=== PATIENT | female | born 1960 | race Caucasian/White ===

== ENCOUNTER 2016-10-09 16:38 | Observation (INO) | payer OTHER ==
[2016-10-09] MEDS ORDERED: ASPIRIN 81 MG CHEW PO STA (17:07)
[2016-10-09] MEDS ORDERED: NITROGLYCERIN OINT 1 INCH/GM PACKET TOPICAL STA (17:07)
--- NOTE | 2016-10-09 17:10 | ED ---
General Adult HPI - General Chief complaint: Chest Pain Stated complaint: Chest Tightness Time Seen by Provider: 10/09/16 16:47 Source: patient, RN notes reviewed Mode of arrival: ambulatory Limitations: no limitations - History of Present Illness Initial comments: Patient is a pleasant 56-year-old female presenting to the emergency department complaining of chest discomfort. Onset was around 1:00. Discomfort was severe for about an hour. Discomfort is mild at this time. Discomfort was shooting however now feels more like tightness. Discomfort is near the left breast. No associated dyspnea or nausea. Patient does feel lightheaded. No history of similar symptoms previously. - Related Data Home Medications Medication Instructions Recorded Confirmed Levothyroxine Sodium [Synthroid] 100 mcg PO DAILY 10/09/16 10/09/16 diphenhydrAMINE HCL [Benadryl] 37.5 mg PO HS PRN 10/09/16 10/09/16 Allergies Allergy/AdvReac Type Severity Reaction Status Date / Time Sulfa (Sulfonamide Allergy Itching Verified 10/09/16 17:13 Antibiotics) Review of Systems ROS Statement: Those systems with pertinent positive or pertinent negative responses have been documented in the HPI. ROS Other: All systems not noted in ROS Statement are negative. Constitutional: Denies: fever Eyes: Denies: eye pain ENT: Denies: ear pain Respiratory: Denies: cough, dyspnea Cardiovascular: Reports: chest pain Endocrine: Denies: fatigue Gastrointestinal: Denies: abdominal pain Genitourinary: Denies: dysuria Musculoskeletal: Denies: back pain Skin: Denies: rash Neurological: Denies: weakness Past Medical History Past Medical History: Thyroid Disorder History of Any Multi-Drug Resistant Organisms: None Reported Past Surgical History: No Surgical Hx Reported Past Psychological History: No Psychological Hx Reported Smoking Status: Never smoker Past Alcohol Use History: Rare Past Drug Use History: None Reported General Exam Limitations: no limitations General appearance: alert, in no apparent distress Head exam: Present: atraumatic Eye exam: Present: normal appearance, PERRL ENT exam: Present: normal oropharynx Neck exam: Present: normal inspection Respiratory exam: Present: normal lung sounds bilaterally. Absent: chest wall tenderness Cardiovascular Exam: Present: regular rate, normal rhythm Expanded Peripheral pulses: 2+: Radial (R), Radial (L), Dorsalis Pedis (R), Dorsalis Pedis (L) GI/Abdominal exam: Present: soft. Absent: tenderness Extremities exam: Present: normal inspection. Absent: pedal edema, calf tenderness Neurological exam: Present: alert Psychiatric exam: Present: normal affect, normal mood Skin exam: Absent: rash Course Vital Signs 10/09/16 10/09/16 10/09/16 16:42 19:57 20:05 Temperature 97.9 F Pulse Rate 54 L 55 L 56 L Respiratory 20 16 20 Rate Blood Pressure 155/74 124/61 O2 Sat by Pulse 100 99 98 Oximetry EKG Findings - EKG Comments: EKG Findings:: No sinus rhythm at 66. Normal intervals. Normal axis. Normal QRS. Normal ST-T. Medical Decision Making - Medical Decision Making Patient reexamined and resting comfortably in bed without complaint. Case discussed in detail with Dr. Broderick, who will admit for Dr. Faria. Patient updated. Admission orders written. Cardiac consult placed. IV heparin started. - Lab Data Result diagrams: 10/09/16 17:35 10/09/16 17:35 Lab Results 10/09/16 10/09/16 10/09/16 Range/Units 17:35 17:35 17:35 WBC 5.2 (3.8-10.6) k/uL RBC 4.65 (3.80-5.40) m/uL Hgb 13.5 (11.4-16.0) gm/dL Hct 40.8 (34.0-46.0) % MCV 87.7 (80.0-100.0) fL MCH 29.0 (25.0-35.0) pg MCHC 33.0 (31.0-37.0) g/dL RDW 13.5 (11.5-15.5) % Plt Count 215 (150-450) k/uL Neutrophils % 63 % Lymphocytes % 29 % Monocytes % 4 % Eosinophils % 1 % Basophils % 1 % Neutrophils # 3.3 (1.3-7.7) k/uL Lymphocytes # 1.5 (1.0-4.8) k/uL Monocytes # 0.2 (0-1.0) k/uL Eosinophils # 0.1 (0-0.7) k/uL Basophils # 0.0 (0-0.2) k/uL PT (9.0-12.0) sec INR (<1.1) APTT (22.0-30.0) sec Sodium 140 (137-145) mmol/L Potassium 4.0 (3.5-5.1) mmol/L Chloride 100 (98-107) mmol/L Carbon Dioxide 29 (22-30) mmol/L Anion Gap 11 mmol/L BUN 15 (7-17) mg/dL Creatinine 0.73 (0.52-1.04) mg/dL Est GFR (MDRD) Af Amer >60 (>60 ml/min/1.73 sqM) Est GFR (MDRD) Non-Af >60 (>60 ml/min/1.73 sqM) Glucose 86 (74-99) mg/dL Calcium 10.1 (8.4-10.2) mg/dL Magnesium 2.0 (1.6-2.3) mg/dL Total Bilirubin 0.6 (0.2-1.3) mg/dL AST 21 (14-36) U/L ALT 23 (9-52) U/L Alkaline Phosphatase 74 (38-126) U/L Total Creatine Kinase 41 (30-135) U/L CK-MB (CK-2) 0.3 (0.0-2.4) ng/mL CK-MB (CK-2) Rel Index 0.7 Troponin I <0.012 (0.000-0.034) ng/mL Total Protein 8.0 (6.3-8.2) g/dL Albumin 4.6 (3.5-5.0) g/dL Urine Color Urine Appearance (Clear) Urine pH (5.0-8.0) Ur Specific [place] (1.001-1.035) Urine Protein (Negative) Urine Glucose (UA) (Negative) Urine Ketones (Negative) Urine Blood (Negative) Urine Nitrate (Negative) Urine Bilirubin (Negative) Urine Urobilinogen (<2.0) mg/dL Ur Leukocyte Esterase (Negative) 10/09/16 10/09/16 Range/Units 17:35 17:35 WBC (3.8-10.6) k/uL RBC (3.80-5.40) m/uL Hgb (11.4-16.0) gm/dL Hct (34.0-46.0) % MCV (80.0-100.0) fL MCH (25.0-35.0) pg MCHC (31.0-37.0) g/dL RDW (11.5-15.5) % Plt Count (150-450) k/uL Neutrophils % % Lymphocytes % % Monocytes % % Eosinophils % % Basophils % % Neutrophils # (1.3-7.7) k/uL Lymphocytes # (1.0-4.8) k/uL Monocytes # (0-1.0) k/uL Eosinophils # (0-0.7) k/uL Basophils # (0-0.2) k/uL PT 11.0 (9.0-12.0) sec INR 1.1 (<1.1) APTT 25.4 (22.0-30.0) sec Sodium (137-145) mmol/L Potassium (3.5-5.1) mmol/L Chloride (98-107) mmol/L Carbon Dioxide (22-30) mmol/L Anion Gap mmol/L BUN (7-17) mg/dL Creatinine (0.52-1.04) mg/dL Est GFR (MDRD) Af Amer (>60 ml/min/1.73 sqM) Est GFR (MDRD) Non-Af (>60 ml/min/1.73 sqM) Glucose (74-99) mg/dL Calcium (8.4-10.2) mg/dL Magnesium (1.6-2.3) mg/dL Total Bilirubin (0.2-1.3) mg/dL AST (14-36) U/L ALT (9-52) U/L Alkaline Phosphatase (38-126) U/L Total Creatine Kinase (30-135) U/L CK-MB (CK-2) (0.0-2.4) ng/mL CK-MB (CK-2) Rel Index Troponin I (0.000-0.034) ng/mL Total Protein (6.3-8.2) g/dL Albumin (3.5-5.0) g/dL Urine Color Light Yellow Urine Appearance Clear (Clear) Urine pH 6.5 (5.0-8.0) Ur Specific [place] 1.008 (1.001-1.035) Urine Protein Negative (Negative) Urine Glucose (UA) Negative (Negative) Urine Ketones Negative (Negative) Urine Blood Negative (Negative) Urine Nitrate Negative (Negative) Urine Bilirubin Negative (Negative) Urine Urobilinogen <2.0 (<2.0) mg/dL Ur Leukocyte Esterase Negative (Negative) Critical Care Time Critical Care Time: Yes Total Critical Care Time: 31 Disposition Clinical Impression: Unstable angina pectoris Disposition: ADMITTED IP TO THIS HOSP
--- NOTE | 2016-10-09 17:50 | XR ---
EXAMINATION TYPE: XR chest 2V DATE OF EXAM: 10/09/2016 5:47 PM COMPARISON: NONE HISTORY: Chest pain TECHNIQUE: Frontal and lateral views of the chest are obtained. FINDINGS: Heart and mediastinum are normal. Lungs are clear. Diaphragm is normal. There are chest le ads. Bony thorax appears normal. IMPRESSION: Normal chest
[2016-10-09 17:52] LABS: Appearance,Urine Clear (Clear); Bilirubin,Urine Negative (Negative); Glucose,Urine (UA) Negative (Negative); Ketones,Urine Negative (Negative); Leukocyte Esterase,Urine Negative (Negative); Nitrite,Urine Negative (Negative); PH, Urine 6.5 (5.0-8.0); Protein,Urine Negative (Negative); Specific Gravity,Urine 1.008 (1.001-1.035); UA Billing (MACRO vs. MICRO) CHEM; Urobilinogen,Urine <2.0 mg/dL (<2.0)
[2016-10-09 17:53] LABS: Basophils % (A) 1 %; CH 29.9; CHCM 34.3; Eosinophils # (A) 0.1 k/uL (0-0.7); Eosinophils % (A) 1 %; HCT 40.8 % (34.0-46.0); HDW 2.63; HGB 13.5 gm/dL (11.4-16.0); Luc # (Auto) 0.12; Luc % (Auto) 2; Lymphocytes # (A) 1.5 k/uL (1.0-4.8); Lymphocytes % (A) 29 %; MCV 87.7 fL (80.0-100.0); Mean Platelet Volume 7.5; Monocytes # (A) 0.2 k/uL (0-1.0); Monocytes % (A) 4 %; Neutrophils # (A) 3.3 k/uL (1.3-7.7); Neutrophils % (A) 63 %; RBC 4.65 m/uL (3.80-5.40); RDW 13.5 % (11.5-15.5); WBC 5.2 k/uL (3.8-10.6); WBC (Perox) 5.19
[2016-10-09 18:01] LABS: ALT 23 U/L (9-52); AST 21 U/L (14-36); Alkaline Phosphatase 74 U/L (38-126); Anion Gap 11 mmol/L; Blood Urea Nitrogen 15 mg/dL (7-17); Calcium 10.1 mg/dL (8.4-10.2); Carbon Dioxide 29 mmol/L (22-30); Chloride 100 mmol/L (98-107); Glucose 86 mg/dL (74-99); Non-African American GFR(MDRD) >60 (>60 ml/min/1.73 sqM); Sodium 140 mmol/L (137-145); Total Bilirubin 0.6 mg/dL (0.2-1.3)
[2016-10-09 18:02] LABS: INR 1.1 (<1.1); Partial Thromboplastin Time 25.4 sec (22.0-30.0)
[2016-10-09 18:11] LABS: Creatine Kinase 41 U/L (30-135)
[2016-10-09 18:24] LABS: Creatine Kinase MB 0.3 ng/mL (0.0-2.4); Troponin I <0.012 ng/mL (0.000-0.034)
[2016-10-09] MEDS ORDERED: NITROGLYCERIN SL TABS 0.4 MG TAB SUBLINGUAL PRN (20:36)
[2016-10-09] MEDS ORDERED: HEPARIN SODIUM,PORCINE 5,000 UNIT/ML 1 ML VIAL IV ONE (20:36)
[2016-10-09] MEDS ORDERED: HEPARIN SODIUM,PORCINE 5,000 UNIT/ML 1 ML VIAL IV PRN (20:36)
[2016-10-09] MEDS ORDERED: HEPARIN SODIUM,PORCINE/D5W PMX 25,000 UNIT in DEXTROSE/WATER 1 500ML.BAG IV SCH (20:45)
[2016-10-09 21:26] VITALS: RESP 16
[2016-10-09] MEDS ORDERED: ACETAMINOPHEN TAB 500 MG TAB PO STA (21:30)
[2016-10-09 22:32] VITALS: BMI 25.4
[2016-10-10 00:35] LABS: Creatine Kinase 33 U/L (30-135)
[2016-10-10 00:49] LABS: Creatine Kinase MB 0.2 ng/mL (0.0-2.4); Troponin I <0.012 ng/mL (0.000-0.034)
[2016-10-10] MEDS: NITROGLYCERIN OINT 1 INCH/GM PACKET TOPICAL SCH (06:03)
[2016-10-10 07:26] LABS: Mean Platelet Volume 6.5
[2016-10-10 07:47] LABS: Creatine Kinase 32 U/L (30-135)
[2016-10-10 07:59] LABS: Creatine Kinase MB 0.3 ng/mL (0.0-2.4); Troponin I <0.012 ng/mL (0.000-0.034)
[2016-10-10 08:06] LABS: Cholesterol 230 mg/dL (<200); HDL Cholesterol 82 mg/dL (40-60); Triglycerides 54 mg/dL (<150)
[2016-10-10 08:25] LABS: Mis test requested (Blood) PTT
[2016-10-10 08:26] LABS: Mis test result (Blood) 107.3
[2016-10-10] MEDS ORDERED: ASPIRIN 325 MG TAB PO SCH (09:00)
[2016-10-10] MEDS ORDERED: LEVOTHYROXINE 100 MCG TAB PO SCH (09:00)
--- NOTE | 2016-10-10 10:56 | P.HPIM ---
History of Present Illness H&P Date: 10/10/16 Chief Complaint: Chest pain This is a 56-year-old female, patient of [facility]. She has a known past medical history of hypothyroidism and hyperlipidemia. Patient presents to the emergency room with complaints of chest pain. The onset was around 1:00 yesterday afternoon. Patient reports having chest discomfort on the left side of her chest as well as a feeling very dizzy. Symptoms lasted for about an hour. And then she had residual tightness across the bottom portion of her chest. She initially went to the urgent care. Patient had EKG done there and it was reported normal. There were concerns that she was having elevated blood pressure. Patient reports that her systolic blood pressure was in the 160s and is not usually that high. She denies any headache or vision changes. She denies any shortness of breath. Denies any diaphoresis. Denies any nausea or vomiting. Denies any bowel movement changes or urinary symptoms. Chest x-ray was negative. EKG showing normal sinus rhythm. Troponins are negative 3 sets. Cardiology was consulted. And she was admitted to the observation unit. Patient's had no previous cardiac workup. Review of Systems Please refer to HPI otherwise unremarkable Past Medical History Past Medical History: Hyperlipidemia, Thyroid Disorder Additional Past Medical History / Comment(s): Hashimotos, hyperlipidemia diet controlled History of Any Multi-Drug Resistant Organisms: None Reported Past Surgical History: No Surgical Hx Reported Additional Past Surgical History / Comment(s): Filopian tube removed. Past Anesthesia/Blood Transfusion Reactions: No Reported Reaction Past Psychological History: No Psychological Hx Reported Smoking Status: Never smoker Past Alcohol Use History: Rare Past Drug Use History: None Reported Medications and Allergies Home Medications Medication Instructions Recorded Confirmed Type Levothyroxine Sodium [Synthroid] 100 mcg PO DAILY 10/09/16 10/09/16 History diphenhydrAMINE HCL [Benadryl] 37.5 mg PO HS PRN 10/09/16 10/09/16 History Allergies Allergy/AdvReac Type Severity Reaction Status Date / Time Sulfa (Sulfonamide Allergy Itching Verified 10/09/16 17:13 Antibiotics) Physical Exam Vitals: Vital Signs Temp Pulse Pulse Resp BP BP Pulse Ox 10/10/16 08:00 60 16 10/10/16 07:21 98.5 F 60 16 104/59 98 03/06/17 05:56 16 10/10/16 04:00 97.6 F 63 16 102/55 97 10/09/16 23:43 97.8 F 72 16 107/56 98 10/09/16 22:30 16 10/09/16 21:43 97.7 F 66 16 94/67 97 10/09/16 21:25 63 16 124/61 98 Intake and Output 10/09/16 10/10/16 10/10/16 22:59 06:59 14:59 Other: Weight 67.132 kg Head normocephalic Neck supple Lungs clear to auscultation bilaterally no wheezing or crackles Heart regular rate and rhythm S1-S2, no rub or gallop Abdomen is soft nontender nondistended positive bowel sounds no hepatosplenomegaly Extremities no edema Neuro alert and orientated to 3 Results CBC & Chem 7: 10/10/16 07:01 10/09/16 17:35 Labs: Abnormal Lab Results - Last 24 Hours (Table) 10/10/16 Range/Units 07:01 Cholesterol 230 H (<200) mg/dL LDL Cholesterol, Calc 137 H (0-99) mg/dL HDL Cholesterol 82 H (40-60) mg/dL Thrombosis Risk Factor Assmnt - Choose All That Apply Each Factor Represents 1 point: Age 41-60 years Thrombosis Risk Factor Assessment Total Risk Factor Score: 1 Thrombosis Risk Factor Assessment Level: Low Risk Assessment and Plan Plan: 1. Chest pain: NC ruled out. EKG normal sinus rhythm. Troponins negative 3 sets. Cardiology consulted and will await their further recommendations. Continue with IV heparin and aspirin 2. Hypothyroidism continue with her Synthroid 3. Hyperlipidemia: Trying to control with diet. Total cholesterol 230 and LDL 137 GI prophylaxis Pepcid and DVT prophylaxis IV heparin Time with Patient: Greater than 30 (Greater than 50% of the total time spent in counseling and coordination of care.I performed an examination of the patient and discussed their management with the physician Dirt Bike Mechanic. I have reviewed the Physician Dirt Bike Mechanic's notes and agree with the documented findings and plan of care)
--- NOTE | 2016-10-10 11:31 | P.CRDCN ---
History of Present Illness Consult date: 10/10/16 Requesting physician: Raymond Roman Consult reason: chest pain Chief complaint: Chest pain History of present illness: This is a pleasant 56-year-old female with history of hypothyroidism and borderline hyperlipidemia. She presents to the hospital with symptoms of chest pain. According to the patient she had an episode of chest discomfort which she describes as a mild ache beneath her left breast area. Along with the patient states that she had some full feeling in her ears with associated dizziness. She was visiting her grandmother at a half-way, one of the nurses there checked her blood pressure which was noted to be in the 160 systolic range, for this reason she went to the urgent care. An EKG was performed there which was reported to be normal. Blood pressure again was checked there which was noted to be elevated and patient was referred to come to the emergency room for further evaluation. 3 sets of troponins have been negative. EKG shows a normal sinus rhythm with no acute changes, repeat EKG performed in the morning again shows normal sinus rhythm with no changes. Chest x-ray normal. The pressure on arrival here 155/74 with a heart rate in the 50s, 100% on room air. The pressure this morning 104/60 with a heart rate in the 60s. Laboratory data was reviewed, CBC normal, potassium 4.0, BUN 15, creatinine 0.7. Potassium 4.0, troponins negative 3. Magnesium 2.0. Cholesterol 230, triglycerides 54, LDL 137 and HDL 82. At the time of my examination this morning, patient is currently chest pain-free, denies any dizziness or lightheadedness. Past Medical History Past Medical History: Hyperlipidemia, Thyroid Disorder Additional Past Medical History / Comment(s): Hashimotos, hyperlipidemia diet controlled History of Any Multi-Drug Resistant Organisms: None Reported Past Surgical History: No Surgical Hx Reported Additional Past Surgical History / Comment(s): Filopian tube removed. Past Anesthesia/Blood Transfusion Reactions: No Reported Reaction Past Psychological History: No Psychological Hx Reported Smoking Status: Never smoker Past Alcohol Use History: Rare Past Drug Use History: None Reported Medications and Allergies Home Medications Medication Instructions Recorded Confirmed Type Levothyroxine Sodium [Synthroid] 100 mcg PO DAILY 10/09/16 10/09/16 History diphenhydrAMINE HCL [Benadryl] 37.5 mg PO HS PRN 10/09/16 10/09/16 History Allergies Allergy/AdvReac Type Severity Reaction Status Date / Time Sulfa (Sulfonamide Allergy Itching Verified 10/09/16 17:13 Antibiotics) Physical Exam Vitals: Vital Signs Temp Pulse Pulse Resp BP BP Pulse Ox 10/10/16 08:00 60 16 10/10/16 07:21 98.5 F 60 16 104/59 98 10/10/16 05:56 16 10/10/16 04:00 97.6 F 63 16 102/55 97 10/09/16 23:43 97.8 F 72 16 107/56 98 10/09/16 22:30 16 10/09/16 21:43 97.7 F 66 16 94/67 97 10/09/16 21:25 63 16 124/61 98 Intake and Output 10/09/16 10/10/16 10/10/16 22:59 06:59 14:59 Other: Weight 67.132 kg PHYSICAL EXAMINATION: HEENT: Head is atraumatic, normocephalic. Pupils equal, round. Neck is supple. There is no elevated jugular venous pressure. HEART EXAMINATION: Heart S1, S2 normal. No murmur or gallop heard. CHEST EXAMINATION: Lungs are clear to auscultation and precussion. No chest wall tenderness is noted on palpation or with deep breathing. ABDOMEN: Soft, nontender. Bowel sounds are heard. No organomegaly noted. EXTREMITIES: 2+ peripheral pulses with no evidence of peripheral edema and no calf tenderness noted. NEUROLOGIC patient is awake, alert and oriented -3. . Results 10/10/16 07:01 10/09/16 17:35 Cardiac Enzymes 10/09/16 10/10/16 Range/Units 23:45 07:01 CK-MB (CK-2) 0.2 0.3 (0.0-2.4) ng/mL Troponin I <0.012 <0.012 (0.000-0.034) ng/mL Coagulation 10/10/16 Range/Units 03:00 APTT (22.0-30.0) sec Lipids 10/10/16 Range/Units 07:01 Triglycerides 54 (<150) mg/dL Cholesterol 230 H (<200) mg/dL HDL Cholesterol 82 H (40-60) mg/dL CBC 10/10/16 Range/Units 07:01 Plt Count 211 (150-450) k/uL Current Medications Generic Name Dose Route Start Last Admin Trade Name Javy PRN Reason Stop Dose Admin Aspirin 325 mg 10/10/16 09:00 Aspirin PO DAILY KEERTHI Famotidine 20 mg 10/11/16 09:00 Pepcid PO DAILY KEERTHI Levothyroxine Sodium 100 mcg 10/10/16 09:00 Synthroid PO 0630 KEERTHI Nitroglycerin 0.4 mg 10/09/16 20:36 Nitrostat SUBLINGUAL Q5M PRN Chest Pain Sodium Chloride 10 ml 10/09/16 21:00 10/10/16 06:04 Saline Flush IV Not Given BID KEERTHI Intake and Output 10/09/16 10/10/16 10/10/16 22:59 06:59 14:59 Other: Weight 67.132 kg 10/10/16 07:01 EKG Interpretations (text) EKG shows normal sinus rhythm with no acute changes. Assessment and Plan Plan: Assessment and plan #1 symptoms of chest discomfort, atypical in nature. Troponins 3 negative. EKG shows normal sinus rhythm with no acute changes. #2 hypothyroidism #3 hyperlipidemia, untreated Plan We will discontinue the IV heparin. Discontinue Nitropaste. Scheduled patient for an echocardiogram as well as stress echocardiographic study today area we will also start the patient on a low-dose of Lipitor. Further recommendations will be based on these findings and the patient's clinical course. If the stress echo and echocardiogram with Doppler study are normal patient may be able to be discharged from cardiology's perspective and we'll follow her up in the office as an outpatient. DNP note has been reviewed, I agree with a documented findings and plan of care. Patient was seen and examined.
--- NOTE | 2016-10-10 15:19 | ECHOS ---
DATE OF SERVICE: 10/10/2016 AGE: 56Y SEX: F HT: 64" WT: 148 lbs. Protocol Teodoro: X Others: Stress Echo Stage: 3 Dur. of Exercise: 8:00 *Heart Rate Blood Pressure *Rest: 86 Rest: 111/66 * *Max. Achieved: 153 Maximum BP: 160/68 85% PMHR: 140 100% PMHR: 165 *METS: 9.1 INDICATIONS: Chest pain. MEDICATIONS: Benadryl, levothyroxine. Patient was exercised for a total period of 8 minutes. A peak heart rate of 153 was achieved. Maximum blood pressure of 160/68 mmHg was noted. Resting EKG shows normal sinus rhythm with normal TN interval and QRS duration and normal ST-T waves. During exercise, J-point depression with upsloping ST segments are noted. The baseline echocardiographic images reveals a normal left ventricular chamber size with normal left ventricular systolic function. In the immediate postexercise period, normal increase in the wall thickness and contractility is noted. FINAL IMPRESSION: 1. This stress echocardiographic study is negative for stress-induced ischemia. 2. EKG portion of the stress test is not suggestive of ischemia. 3. Patient's exercise tolerance is average.
--- NOTE | 2016-10-10 15:32 | P.DS ---
Providers Date of admission: 10/09/16 20:38 Expected date of discharge: 10/10/16 Attending physician: Raymond Roman Consults: cardiology Primary care physician: Marimar Faria [facility] Course: Discharge diagnosis 1. Chest pain: OR ruled out. EKG normal sinus rhythm. Troponins negative 3 sets. Cardiology consulted and will await their further recommendations. Continue with IV heparin and aspirin 2. Hypothyroidism continue with her Synthroid 3. Hyperlipidemia: Trying to control with diet. Total cholesterol 230 and LDL 137 Hospital course This is a 56-year-old female, patient of [facility]. She has a known past medical history of hypothyroidism and hyperlipidemia. Patient presents to the emergency room with complaints of chest pain. The onset was around 1:00 yesterday afternoon. Patient reports having chest discomfort on the left side of her chest as well as a feeling very dizzy. Symptoms lasted for about an hour. And then she had residual tightness across the bottom portion of her chest. She initially went to the urgent care. Patient had EKG done there and it was reported normal. There were concerns that she was having elevated blood pressure. Patient reports that her systolic blood pressure was in the 160s and is not usually that high. Chest x-ray was negative. EKG showing normal sinus rhythm. Troponins are negative 3 sets. Cardiology was consulted. Cardiology ordered a stress echo. The results showed a negative study for stress-induced ischemia. EKG portion of the stress test was not suggestive of ischemia. Patient has been chest pain-free. And his been cleared for discharge. She'll follow-up with cardiology in the office and will have her follow-up with her PCP in 1 week. Patient had been trying to control her hyperlipidemia with diet. Her cholesterol and LDL are elevated. Cardiology did add Lipitor 40 mg at bedtime. Patient will be given a prescription for this medication. And she'll follow-up with her PCP and cardiology. Patient Condition at Discharge: Stable Plan - Discharge Summary New Discharge Prescriptions: Atorvastatin [Lipitor] 40 mg PO DAILY #30 tab Discharge Medication List Levothyroxine Sodium [Synthroid] 100 mcg PO DAILY 10/09/16 [History] diphenhydrAMINE HCL [Benadryl] 37.5 mg PO HS PRN 10/09/16 [History] Atorvastatin [Lipitor] 40 mg PO DAILY #30 tab 10/10/16 [Rx] Follow up Appointment(s)/Referral(s): Marimar Faria DO [Primary Care Provider] - 1 Week Pb Arreola MD [STAFF PHYSICIAN] - 1 Week Activity/Diet/Wound Care/Special Instructions: Diet: low cholesterol Activity: as tolerated Discharge Disposition: HOME SELF-CARE
[2016-10-10 15:54] VITALS: BP 96/63; PULSE 71; TEMP 98.3
[2016-10-11] MEDS ORDERED: FAMOTIDINE 20 MG TAB PO SCH (09:00)
[2016-10-11] MEDS ORDERED: ATORVASTATIN 40 MG TAB PO SCH (09:00)
--- NOTE | 2016-10-11 09:56 | ECHOF ---
Referral Reason:chest pain MEASUREMENTS -------- HEIGHT: 162.6 cm WEIGHT: 67.1 kg BP: 111/66 RVIDd: 2.9 cm (< 3.3) IVSd: 1.1 cm (0.6 - 1.1) LVIDd: 4.4 cm (3.9 - 5.3) LVPWd: 1.0 cm (0.6 - 1.1) IVSs: 1.2 cm LVIDs: 3.4 cm LVPWs: 1.5 cm LA Diam: 3.1 cm (2.7 - 3.8) LAESV Index (A-L): 25.04 ml/m Ao Diam: 2.7 cm (2.0 - 3.7) AV Cusp: 1.7 cm (1.5 - 2.6) LA Diam: 3.4 cm (2.7 - 3.8) MV EXCURSION: 16.679 mm (> 18.000) MV EF SLOPE: 89 mm/s (70 - 150) EPSS: 0.4 cm MV E Jerry: 0.97 m/s MV DecT: 178 ms MV A Jerry: 1.08 m/s MV E/A Ratio: 0.90 RAP: 5.00 mmHg RVSP: 33.58 mmHg FINDINGS -------- Sinus rhythm. This was a technically good study. LV size, wall thickness and systolic function are normal, with an EF greater than 55%. The right ventricle is normal in size. The left atrial size is normal. Normal LA size by volume 22+/-6 ml/m2. The right atrial size is normal. There is mild aortic valve sclerosis. There is no evidence of aortic regurgitation. Mild mitral annular calcification present. Mild mitral regurgitation is present. Mild tricuspid regurgitation present. There is no evidence of pulmonary hypertension. The right ventricular systolic pressure, as measured by Doppler, is 33.58mmHg. There is no pulmonic regurgitation present. The aortic root size is normal. There is no pericardial effusion. CONCLUSIONS -------- 1. LV size, wall thickness and systolic function are normal, with an EF greater than 55%. 2. Normal LA size by volume 22+/-6 ml/m2. 3. There is mild aortic valve sclerosis. 4. Mild mitral annular calcification present. 5. Mild mitral regurgitation is present. 6. Mild tricuspid regurgitation present. 7. There is no evidence of pulmonary hypertension. 8. The right ventricular systolic pressure, as measured by Doppler, is 33.58mmHg. HEALTH NAVIGATOR: Hodan Kerr RDCS
== END 2016-10-10 16:27 | disposition home or self-care (01) ==
LOC: EC 16:38 → 3OBS 20:38
PROVIDERS: ADMIT Internal Medicine; ATTEND Internal Medicine
DX: R07.89 Other chest pain (principal); E03.9 Hypothyroidism, unspecified; E06.3 Autoimmune thyroiditis; E78.5 Hyperlipidemia, unspecified; E78.00 Pure hypercholesterolemia, unspecified; R42 Dizziness and giddiness; Z79.899 Other long term (current) drug therapy; Z88.2 Allergy status to sulfonamides
CPT/HCPCS: 99291; 96365 ×2; 96376 ×2; 93005 ×2; 96366 ×2; 36415; 93350; 93017; 93306; 80061; 80053; 82550 ×2; 82553 ×2; 83735; 84484 ×2; 85025; 85049; 85610; 85730; 81003; 71020; G0378 ×2; J1644 ×2; Q9957

== ENCOUNTER 2020-02-09 15:09 | Emergency (ER) | payer BC, OTHER ==
[2020-02-09] MEDS ORDERED: methylPREDNISolone SOD SUCCI 125 MG/2 ML VIAL IV STA (15:24)
[2020-02-09] MEDS ORDERED: SODIUM CHLORIDE 0.9% 1,000 ML IV STA (15:24)
[2020-02-09] MEDS ORDERED: FAMOTIDINE 20 MG/2 ML VIAL IV STA (15:24)
[2020-02-09] MEDS ORDERED: diphenhydrAMINE 50 MG/ML 1 ML VIAL IVP STA (15:24)
--- NOTE | 2020-02-09 15:26 | ED ---
Allergic Reaction HPI - General Stated complaint: Allergic Reaction Time Seen by Provider: 02/09/20 15:10 - History of Present Illness Initial Comments: Patient is a 60-year-old female with past medical history of hypertension presents to emergency department after she was stung at home. She states she was working outside in her yard when she felt a sting on her left shoulder. Approximately 25 minutes later she began feeling tingling in her hands and extremely lightheaded. She thought she was given a pass out. She began having nausea and vomiting. She ran to her car where her EpiPen was was able to inject herself in her right thigh. She then sat down on the porch. Denies a sensation that her airway was closing off. The bite did well-developed up however there is no identifiable rash on the patient's body. No oral swelling. Patient re ports to a history of similar in the past however it has been a significant period of time since this has happened. She did get ALLERGY testing and they were unable to identify which she is ALLERGIC to. EMS got that she did pass out. EMS arrived today and found the patient to be hypotensive with a blood pressure in the 80 systolic. They attempted IV however were unsuccessful. Patient's blood pressure did improve on its own. She rise and states she feels much better at this time. She denies any chest pain or shortness of breath. No headaches or visual changes. There are no other alleviating, precipitating or modifying factors - Related Data Home Medications Medication Instructions Recorded Confirmed Levothyroxine Sodium [Synthroid] 100 mcg PO DAILY 10/09/16 10/09/16 diphenhydrAMINE HCL [Benadryl] 37.5 mg PO HS PRN 10/09/16 10/09/16 Previous Rx's Medication Instructions Recorded Atorvastatin [Lipitor] 40 mg PO DAILY #30 tab 10/10/16 EPINEPHrine (Auto Inject) [Epipen] 0.3 mg IM ONCE PRN #2 pen 02/09/20 Famotidine [Pepcid] 20 mg PO BID #10 tablet 02/09/20 predniSONE [Deltasone] 20 mg PO DIRECTED #10 tab 02/09/20 Allergies Allergy/AdvReac Type Severity Reaction Status Date / Time insect venom Allergy Anaphylaxis Verified 02/09/20 15:51 Sulfa (Sulfonamide Allergy Itching Verified 02/09/20 15:51 Antibiotics) Review of Systems ROS Statement: Those systems with pertinent positive or pertinent negative responses have been documented in the HPI. ROS Other: All systems not noted in ROS Statement are negative. Past Medical History Past Medical History: Hyperlipidemia, Thyroid Disorder Additional Past Medical History / Comment(s): Hashimotos, hyperlipidemia diet controlled History of Any Multi-Drug Resistant Organisms: None Reported Past Surgical History: No Surgical Hx Reported Additional Past Surgical History / Comment(s): Filopian tube removed. Past Anesthesia/Blood Transfusion Reactions: No Reported Reaction Past Psychological History: No Psychological Hx Reported Smoking Status: Never smoker Past Alcohol Use History: Rare Past Drug Use History: None Reported General Exam General appearance: alert, in no apparent distress Head exam: Present: atraumatic, normocephalic, normal inspection Eye exam: Present: normal appearance, PERRL, EOMI. Absent: scleral icterus, conjunctival injection, periorbital swelling ENT exam: Present: normal exam, mucous membranes moist, other (no drooling, tr ismus, hoarseness or stridor. No oral swelling ) Neck exam: Present: normal inspection. Absent: tenderness, meningismus, lymphadenopathy Respiratory exam: Present: normal lung sounds bilaterally. Absent: respiratory distress, wheezes, rales, rhonchi, stridor Cardiovascular Exam: Present: regular rate, normal rhythm, normal heart sounds. Absent: systolic murmur, diastolic murmur, rubs, gallop, clicks GI/Abdominal exam: Present: soft, normal bowel sounds. Absent: distended, tenderness, guarding, rebound, rigid Extremities exam: Present: normal inspection, full ROM, normal capillary refill. Absent: tenderness, pedal edema, joint swelling, calf tenderness Back exam: Present: normal inspection Neurological exam: Present: alert, oriented X3, CN II-XII intact Psychiatric exam: Present: normal affect, normal mood Skin exam: Present: warm, dry, other (large raised area of swelling to the left shoulder with central punctate. No additional hives noted. No retained FB (stinger)). Absent: rash Course Vital Signs 02/09/20 02/09/20 02/09/20 15:52 16:23 17:15 Temperature 98.7 F Pulse Rate 51 L 55 L 55 L Respiratory 18 18 18 Rate Blood Pressure 119/67 125/70 128/51 O2 Sat by Pulse 100 100 98 Oximetry Medical Decision Making - Medical Decision Making Upon arrival the patient is placed into room 1. A thorough history and physical exam is performed. Upon arrival vital signs are stable. We attempted IV however we do have a difficult time getting access. The patient was given oral prednisone, Pepcid and Benadryl. She is watched in the emergency room for 2 hours. She does have stable vital signs throughout her stay. She is reassessed and has no sensation that her airway is closing off. I did discuss diagnosis, differential and treatment options. At this time the patient will be discharged home. She is given prescriptions for prednisone, Pepcid and EpiPen. She is instructed to take Benadryl or Ann daily. Return to the emergency room for any new or worsening symptoms. Patient was in agreement with this plan and she was discharged home in stable condition - EKG Data EKG Comments: EKG demonstrates a sinus bradycardia with a ventricular rate of 53. SC interval 146. QRS 90. QTC of 386. No acute ST segment elevations or depressions concerning for ischemic changes Disposition Clinical Impression: Allergic reaction to insect sting Disposition: HOME SELF-CARE Condition: Stable Instructions (If sedation given, give patient instructions): Anaphylaxis (ED) Additional Instructions: Please take an Ann daily. Also take the Pepcid and prednisone as directed. Return to the emergency room for any new or worsening symptoms. Prescriptions: predniSONE [Deltasone] 20 mg PO DIRECTED #10 tab EPINEPHrine (Auto Inject) [Epipen] 0.3 mg IM ONCE PRN #2 pen PRN Reason: Anaphylaxis Famotidine [Pepcid] 20 mg PO BID #10 tablet Is patient prescribed a controlled substance at d/c from ED?: No Referrals: Marimar Faria DO [Primary Care Provider] - 1-2 days Time of Disposition: 17:01
[2020-02-09 15:57] VITALS: RESP 18; TEMP 98.7
[2020-02-09] MEDS ORDERED: diphenhydrAMINE 50 MG CAP PO STA (16:13)
[2020-02-09] MEDS ORDERED: FAMOTIDINE 20 MG TAB PO STA (16:14)
[2020-02-09] MEDS ORDERED: predniSONE 20 MG TAB PO STA (16:17)
[2020-02-09 16:23] VITALS: PULSE 55
[2020-02-09 17:21] VITALS: BP 128/51
== END 2020-02-09 17:15 | disposition home or self-care (01) ==
LOC: EC 15:09
DX: T63.441A Toxic effect of venom of bees, accidental (unintentional), initial encounter (principal); E06.3 Autoimmune thyroiditis; E78.5 Hyperlipidemia, unspecified; Z79.890 Hormone replacement therapy; Z91.038 Other insect allergy status; Z88.2 Allergy status to sulfonamides
CPT/HCPCS: 99285 ×2; 93005; J7512

== ENCOUNTER 2021-03-09 10:51 | Day surgery (SDC) | payer BC ==
[2021-03-08 09:57] VITALS: BMI 24.0
[2021-03-09] MEDS ORDERED: fentaNYL (PF) 50 MCG/ML 2 ML AMP ONE (11:36)
[2021-03-09 11:38] VITALS: TEMP 98.3
[2021-03-09] MEDS ORDERED: SODIUM CHLORIDE 0.9% 500 ML 500 ML IV ONE (11:38)
[2021-03-09] MEDS ORDERED: BENZOCAINE SPRAY 1 CAN MUCOUS MEM ONE (11:55)
[2021-03-09] MEDS ORDERED: MIDAZOLAM 2 MG/2 ML VIAL IV ONE (12:02)
[2021-03-09] MEDS ORDERED: fentaNYL (PF) 50 MCG/ML 2 ML AMP IV ONE (12:02)
[2021-03-09 12:07] VITALS: RESP 16
--- NOTE | 2021-03-09 12:22 | P.TEE ---
Indications for Procedure(s): Rule out Cardec source of emboli. History of TIA Date of Procedure: 03/09/21 Preoperative Diagnosis: TIA and cryptogenic stroke Postoperative Diagnosis: No definite cardiac source of emboli. There is mild to moderate soft plaque in the aorta Procedure(s) Performed: MARY Description of Procedure(s): INDICATION: This is a 61-year-old female who had a history of cryptogenic stroke. Patient was referred for MARY examination by Dr. ROSE Sultana. Apparently there was a positive bubble study with a transthoracic echo study CONSENT: Informed verbal consent is obtained from patient PROCEDURE: , Patient was brought to the lab in a fasting state. She was prepped and draped in the usual fashion. The throat was sprayed with Hurricaine. A lubricated Omni probe was introduced into the oropharynx and was advanced into the esophagus. Multiple views were obtained. Color, pulsed and continuous for Doppler studies and saline contrast bubble study was performed. Patient tolerated the procedure well. No immediate complications FINDINGS: . The aortic valve is tricuspid and function normally. Mitral valve is functioning normally with mild regurgitation about 1+. The tricuspid valve appears to be normal. The left atrial appendage is free of any clot. The interatrial septum appeared to be intact without any spontaneous shunt. Saline contrast bubble injection did not reveal any evidence of bubbles crossing the septum. Left ventricular function is normal. The aorta showed mild to moderate soft plaque IMPRESSION: . No definite cardiac source of emboli. There is some soft plaque noted in the aorta PLAN: And she knew current medical therapy. Continue investigation for other causes of CVA
[2021-03-09] MEDS ORDERED: SODIUM CHLORIDE 0.9% 1,000 ML IV SCH (12:30)
[2021-03-09 12:58] VITALS: PULSE 56
[2021-03-09 13:20] VITALS: BP 118/65
== END 2021-03-09 13:26 | disposition home or self-care (01) ==
LOC: CATHCVL 10:51
PROVIDERS: ATTEND Internal Medicine Cardiovascular Disease
DX: I34.0 Nonrheumatic mitral (valve) insufficiency (principal); Z87.820 Personal history of traumatic brain injury; R94.8 Abnormal results of function studies of other organs and systems; E78.5 Hyperlipidemia, unspecified; Z86.73 Personal history of transient ischemic attack (TIA), and cerebral infarction without residual deficits; E07.9 Disorder of thyroid, unspecified; E78.00 Pure hypercholesterolemia, unspecified; Z72.0 Tobacco use; Z79.82 Long term (current) use of aspirin; Z79.890 Hormone replacement therapy; Z79.899 Other long term (current) drug therapy; Z88.2 Allergy status to sulfonamides
CPT/HCPCS: 93312; 93320; 93325; J2250; J3010

== ENCOUNTER → 2022-10-19 | Outpatient (CLI) | payer BC ==
[2022-10-19 10:05] VITALS: BP 146/88; PULSE 64; RESP 16; TEMP 98.6
--- NOTE | 2022-10-19 11:12 | P.HPOB ---
History of Present Illness H&P Date: 10/19/22 Chief Complaint: The patient is here for her routine gynecologic exam and ma mmogram. This is a 62-year-old G0 with an LMP of 2011. The patient is here to establish with this office. She is without gynecologic complaints and denies any post menopausal bleeding. It has been more than 10 years since her last pelvic exam. She states she has been experiencing some urinary symptoms including a slight urinary odor and some urinary frequency. She believed the urine order was being caused by her cholesterol medication so she gradually decrease the dose and discontinued it on August [id number]. The urine smell is last but the urine still has a slight smell. She states she was treated for a UTI in mid September, but she states her urine test came back negative for infection. Review of Systems The patient has gained 6 pounds over the last year. She denies respiratory, cardiac, or G.I. problems. Past Medical History Past Medical History: Hyperlipidemia, Thyroid Disorder Additional Past Medical History / Comment(s): ? TIA 12/08/20 - had increased BP/numbness, symptoms resolved now. Hashimotos with current hypothyroidism. Seasonal ALLERGIES. Past SEO SPECIALIST history: Tubal infection resulting in bilateral salpingectomy. Cryotherapy of the cervix at age 31. History of Any Multi-Drug Resistant Organisms: None Reported Additional Past Surgical History / Comment(s): Bilateral salpingectomy. Cryotherapy of the cervix approximately 1989. Laparoscopy. Past Anesthesia/Blood Transfusion Reactions: Motion Sickness, Postoperative Nausea & Vomiting (PONV) Past Psychological History: No Psychological Hx Reported (She denies current depression.) Smoking Status: Former smoker Past Alcohol Use History: Occasional (0-1 per month.) Additional Past Alcohol Use History / Comment(s): Quit smoking in her 20s. Past Drug Use History: None Reported Additional History: She is and has not been sexually active for several years. She has her own [employer]. - Past Family History Mother Family Medical History: No Reported History Additional Family Medical History / Comment(s): She denies family history of cancer of the breast, uterus, ovaries, or colon. Father Family Medical History: No Reported History Medications and Allergies Home Medications Medication Instructions Recorded Confirmed Type EPINEPHrine (Auto Inject) [Epipen] 0.3 mg IM ONCE PRN #2 pen 02/09/20 10/19/22 Rx Cholecalciferol (Vitamin D3) 250 mcg PO MOFR 03/08/21 10/19/22 History [Vitamin D3 (125 MCG = 5,000 IU)] Levothyroxine Sodium 100 mcg PO DAILY 03/08/21 10/19/22 History Rosuvastatin [Crestor] 20 mg PO TUSA 03/08/21 10/19/22 History Cetirizine HCl [Zyrtec] 10 mg PO DAILY PRN 10/19/22 10/19/22 History Allergies Allergy/AdvReac Type Severity Reaction Status Date / Time insect venom Allergy Anaphylaxis Verified 10/19/22 10:01 Sulfa (Sulfonamide Allergy Itching Verified 10/19/22 10:01 Antibiotics) Exam Vital Signs Temp Pulse Resp BP Pulse Ox 10/19/22 10:03 98.6 F 64 16 146/88 100 Intake and Output 10/18/22 10/19/22 10/19/22 22:59 06:59 14:59 Other: Weight 69.853 kg Height 5 feet 4 inches, weight 154 pounds, BMI 26.4. This is a well-developed well-nourished white female who is alert and oriented times 3 in no acute distress. HEENT: Within normal limits. NECK: Supple without mass or thyromegaly. CHEST AND LUNGS: Clear to auscultation. HEART: Regular rate and rhythm. BREASTS: Are without mass or discharge. AXILLARY EXAM: Negative for adenopathy. BACK: Negative for CVA tenderness. ABDOMEN: Soft, nontender, without palpable masses. PELVIC EXAM: Normal external genitalia with mild to moderate atrophy. Cervix and vagina appear normal with mild to moderate atrophy. The cervix is nulliparous and somewhat stenotic secondary to atrophy. There is no unusual discharge. There is no evidence of prolapse. The uterus is midposition, nongravid size and nontender. There are no palpable adnexal masses or tenderness. RECTAL EXAM: Rectovaginal exam is negative for mass or tenderness and is negative for occult blood. EXTREMITIES: Nontender. IMPRESSION: 1. 62-year-old menopausal female with normal gynecologic exam. 2. Mild urinary symptoms including slight urinary frequency and slight urinary odor. 3. Mildly elevated blood pressure. PLAN: 1. Pap smear cotest was performed. Because of inadequate recent screening, screening will be continued beyond a 66. 2. Self breast awareness was discussed with the patient. We have also discussed symptoms associated with inflammatory breast cancer. 3. Screening mammogram will be done today. 4. Urine has been obtained for urinalysis and culture with sensitivity. 5. She will try to check her own blood pressure on a regular basis and follow up with her PCP for blood pressure elevations. 6.Osteoporosis prevention was discussed. I have stressed the importance of adequate calcium, vitamin D and regular exercise. Recommended amounts of calcium and vitamin D were also discussed. I have recommended bone density test based on her age and the order slip was given to the patient for this. 7. Colorectal cancer screening was discussed. She states she does Cologuard testing through her PCP on a regular basis. 8. She was advised to return in one year for her annual well woman exam. I have stressed the importance of regular gynecologic exams and regular mammograms. She states she will do this on a more regular basis from here on out.
--- NOTE | 2022-10-19 13:50 | MM ---
Reason for Exam: Screening (asymptomatic). Patient History: Menarche at age 13. Postmenopausal. Risk Values: Randi 5 year model risk: 1.1%. NCI Lifetime model risk: 5.2%. Prior Study Comparison: No prior studies available for comparison. Tissue Density: The breast tissue is heterogeneously dense. This may lower the sensitivity of mammography. Analyzed By CAD. Overall Assessment: Negative, BI-RAD 1 Management: Screening Mammogram of both breasts in 1 year. Electronically signed and approved by: Juan R Payton M.D.
[2022-10-20 01:10] LABS: Appearance,Urine Clear (Clear); Bilirubin,Urine Negative (Negative); Blood,Urine Negative (Negative); Color,Urine Yellow (Yellow); Ketones,Urine Negative (Negative); Nitrite,Urine Negative (Negative); Specific Gravity,Urine 1.008 (1.001-1.030); Urobilinogen,Urine 0.2 (0.2,1.0)
--- NOTE | 2022-10-20 11:53 | P.PN ---
Progress Note - Text Progress Note Date: 10/20/22 OUTPATIENT FOLLOW-UP NOTE TEST(S)/RESULTS: Urinalysis done on 10/19/2022 was negative. METHOD OF NOTIFICATION: The patient was notified by phone. PATIENT COMMENTS: DIAGNOSIS: Negative urinalysis. DISCUSSION: Urine culture is still pending. Also pending will be the Pap smear cotest and mammogram. PLAN: Await for the above test results.
== END ==
LOC: WWCWWP 09:47
PROVIDERS: ATTEND Obstetrics & Gynecology
DX: Z12.31 Encounter for screening mammogram for malignant neoplasm of breast (principal); Z01.411 Encounter for gynecological examination (general) (routine) with abnormal findings; R03.0 Elevated blood-pressure reading, without diagnosis of hypertension; Z79.890 Hormone replacement therapy; Z88.0 Allergy status to penicillin; Z91.02 Food additives allergy status; E78.5 Hyperlipidemia, unspecified; E03.9 Hypothyroidism, unspecified; Z87.891 Personal history of nicotine dependence
CPT/HCPCS: 77067; 81003; 87086

== ENCOUNTER → 2023-11-22 | Outpatient (CLI) | payer BC ==
[2023-11-22 11:17] VITALS: BP 118/74; PULSE 71; RESP 16; TEMP 98.4
--- NOTE | 2023-11-22 12:31 | P.HPOB ---
History of Present Illness H&P Date: 11/22/23 Chief Complaint: The patient is here for her routine gynecologic exam and ma mmogram. This is a 63-year-old G0 with an LMP of 2012. The patient was treated for UTI about 1 year ago and she again developed UTI symptoms in early October which included urinary frequency and dysuria. She was treated by her PCP for a UTI with 1 antibiotic and then the urine culture apparently showed that the UTI was resistant to the initial antibiotics so she was placed on a second antibiotic which she believes was amoxicillin. After taking the antibiotics she developed some intermittent dull aching in the mid to upper abdomen which she thought may have been some hiatal hernia discomfort. She is still having some intermittent dull aches. She also did some heavy lifting with her [employer] work and thinks she may have pulled a muscle in the right side of her abdomen. Her urinary symptoms significantly improved but occasionally she still feels slight urinary urgency similar to an early part of a UTI. She is requesting to have her urine retested for infection. She is without gynecologic complaints. Review of Systems Weight has been stable. She denies respiratory or cardiac problems. GI: She has noticed some recent constipation and did have temporary improvement after using a suppository. She denies nausea, vomiting, or loss of appetite. : See the HPI. Past Medical History Past Medical History: Hyperlipidemia, Thyroid Disorder Additional Past Medical History / Comment(s): ? TIA 12/08/20 - had increased BP/numbness, symptoms resolved now. Hashimotos with current hypothyroidism. Seasonal ALLERGIES. Past LAUNDRY AIDE history: Tubal infection resulting in bilateral salpingectomy. Cryotherapy of the cervix at age 31. History of Any Multi-Drug Resistant Organisms: None Reported Past Surgical History: No Surgical Hx Reported Additional Past Surgical History / Comment(s): Bilateral salpingectomy. Cryo therapy of the cervix approximately 1989. Laparoscopy. Past Anesthesia/Blood Transfusion Reactions: Motion Sickness, Postoperative Nausea & Vomiting (PONV) Past Psychological History: No Psychological Hx Reported Smoking Status: Former smoker Past Alcohol Use History: Occasional (0 to 3/month.) Additional Past Alcohol Use History / Comment(s): Quit smoking in her 20s. Past Drug Use History: None Reported Additional History: She is and has not been sexually active for several years. She owns a [employer]. - Past Family History Mother Family Medical History: No Reported History Additional Family Medical History / Comment(s): She denies family history of cancer of the breast, uterus, ovaries, or colon. Father Family Medical History: No Reported History Medications and Allergies Home Medications Medication Instructions Recorded Confirmed Type EPINEPHrine (Auto Inject) [Epipen] 0.3 mg IM ONCE PRN #2 pen 02/09/20 11/22/23 Rx Cholecalciferol (Vitamin D3) 250 mcg PO MOFR 03/08/21 11/22/23 History [Vitamin D3 (125 MCG = 5,000 IU)] Levothyroxine Sodium 100 mcg PO DAILY 03/08/21 11/22/23 History Cetirizine HCl [Zyrtec] 10 mg PO DAILY PRN 10/19/22 11/22/23 History Allergies Allergy/AdvReac Type Severity Reaction Status Date / Time insect venom Allergy Anaphylaxis Verified 11/22/23 11:00 Sulfa (Sulfonamide Allergy Itching Verified 11/22/23 11:00 Antibiotics) Exam Vital Signs Temp Pulse Resp BP Pulse Ox 11/22/23 11:02 98.4 F 71 16 118/74 99 Intake and Output 11/21/23 11/22/23 11/22/23 22:59 06:59 14:59 Other: Weight 69.853 kg Height 5 feet 4 inches, weight 154 pounds, BMI 26.4. This is a well-developed well-nourished white female who is alert and oriented times 3 in no acute distress. HEENT: Within normal limits. NECK: Supple without mass or thyromegaly. CHEST AND LUNGS: Clear to auscultation. HEART: Regular rate and rhythm. BREASTS: Are without mass or discharge. AXILLARY EXAM: Negative for adenopathy. BACK: Negative for CVA tenderness. ABDOMEN: Soft, without palpable masses. There is minimal right lateral tenderness without rebound tenderness. There is no right lower quadrant tenderness. Rest of the abdomen is unremarkable. The abdomen is not distended. There are 1+ bowel sounds. PELVIC EXAM: Normal external genitalia mild atrophy. Cervix and vagina appear normal with mild atrophy. There is no unusual discharge. There is no evidence of prolapse. There is no cervical motion tenderness. The uterus is midposition, nongravid size and nontender. There are no palpable adnexal masses or tenderness. RECTAL EXAM: Rectovaginal exam is negative for mass or tenderness and is negative for occult blood. EXTREMITIES: Nontender. IMPRESSION: 1. 63-year-old menopausal female with normal gynecologic exam. 2. Various abdominal discomforts which she believes is related to various things. She suspected that antibiotics may have caused some GI discomfort which has not fully resolved. Also believes that she may have pulled a muscle doing lifting. At this time I doubt a gynecologic cause based on her symptoms and normal gynecologic exam. 3. Status post treatment for UTI with minimal residual urinary symptoms. She occasionally has slight urinary urgency. PLAN: 1. Pap smear was deferred since she had a negative Pap smear cotest on 10/19/2022. 2. Self breast awareness was discussed with the patient. We have also discussed symptoms associated with inflammatory breast cancer. 3. Screening mammogram will be done today. 4. Repeat urinalysis with urine culture to confirm no signs of UTI. 5. We have discussed her abdominal pains. We have discussed avoiding movements that seem to aggravate the abdominal pain as well as trying to keep her diet regular with adequate fiber. If upper abdominal symptoms are not resolving or worsening, she will discuss this with her PCP. If she develops a low abdominal or pelvic discomfort she was instructed to call me and we can consider further evaluation for possible gynecologic cause. 6. Osteoporosis prevention was discussed. I have stressed the importance of adequate calcium, vitamin D and regular exercise. Recommended amounts of calcium and vitamin D were also discussed. She states she has not had a bone density test and I have recommended doing this. The order slip was given to the patient for this. 7. Colorectal cancer screening has been done with Cologuard testing through her PCP and she is planning on doing this in the near future. 8. She was advised to return in one year for her annual well woman exam and as needed.
[2023-11-23 15:29] LABS: Appearance,Urine Clear (Clear); Bilirubin,Urine Negative (Negative); Blood,Urine Negative (Negative); Color,Urine Yellow (Yellow); Ketones,Urine Negative (Negative); Nitrite,Urine Negative (Negative); PH, Urine 5.5; Specific Gravity,Urine 1.017 (1.001-1.030); Urobilinogen,Urine 0.2 E.U./DL
--- NOTE | 2023-11-24 08:44 | P.PN ---
Progress Note - Text Progress Note Date: 11/24/23 Test results from 11/22/2023 include negative urinalysis and urine culture showing skin genital nancy. Impression: No evidence for UTI at this time. Plan: The treatment needed. The patient was notified by phone on 11/24/2023.
--- NOTE | 2023-11-24 09:24 | MM ---
Reason for Exam: Screening (asymptomatic). Last mammogram was performed 1 year(s) and 1 month(s) ago. Patient History: Menarche at age 13. Postmenopausal. Risk Values: Randi 5 year model risk: 1.1%. NCI Lifetime model risk: 5.0%. Prior Study Comparison: 10/19/2022 Bilateral MG screening mammo w CAD, [facility]. Tissue Density: There are scattered areas of fibroglandular density. Findings: Analyzed By CAD. Right breast: Asymmetry middle depth posterior nipple line slightly lateral on CC view 4.7 cm from the nipple. Left breast: There is no suspicious group of microcalcifications or new suspicious mass. Overall Assessment: Incomplete: need additional imaging evaluation, BI-RAD 0 Management: Diagnostic Mammogram of the right breast. [facility] will attempt to contact patient to return for supplemental views and ultrasound if indicated. Patient should continue monthly self-breast exams. A clinical breast exam by your physician is recommended on an annual basis. This exam should not preclude additional follow-up of suspicious palpable abnormalities. Note on Randi scores and lifetime risk: 1. A Randi score greater than 3% is considered moderate risk. If this is the case, consider specialist referral to assess eligibility for a risk reducing agent. 2. If overall lifetime risk for the development of breast cancer is 20% or higher, the patient may qualify for future screening with alternating mammogram and breast MRI. Electronically signed and approved by: Edward Steiner DO
== END ==
LOC: WWCWWP 10:40
PROVIDERS: ATTEND Obstetrics & Gynecology
DX: Z12.31 Encounter for screening mammogram for malignant neoplasm of breast (principal); N39.0 Urinary tract infection, site not specified; Z87.440 Personal history of urinary (tract) infections; Z87.891 Personal history of nicotine dependence; Z88.2 Allergy status to sulfonamides; Z78.0 Asymptomatic menopausal state; Z88.1 Allergy status to other antibiotic agents
CPT/HCPCS: 77067; 81003; 87086

== ENCOUNTER → 2023-11-27 | Outpatient (CLI) | payer BC ==
--- NOTE | 2023-11-27 09:18 | MM ---
Reason for Exam: Additional evaluation requested from abnormal screening. Last screening mammogram was performed less than 1 month ago. Patient History: Menarche at age 13. Postmenopausal. Risk Values: Randi 5 year model risk: 1.1%. NCI Lifetime model risk: 5.0%. Tissue Density: Right: The breasts are heterogeneously dense, which may obscure small masses. Findings: Analyzed By CAD. Asymmetric density appears much improved following spot compression imaging. Precautionary six-month follow-up is recommended. Overall Assessment: Probably benign, BI-RAD 3 Management: Diagnostic Mammogram of the right breast in 6 months. . Results were given to the patient verbally at the time of exam. Patient should continue monthly self-breast exams. A clinical breast exam by your physician is recommended on an annual basis. This exam should not preclude additional follow-up of suspicious palpable abnormalities. Note on Randi scores and lifetime risk: 1. A Randi score greater than 3% is considered moderate risk. If this is the case, consider specialist referral to assess eligibility for a risk reducing agent. 2. If overall lifetime risk for the development of breast cancer is 20% or higher, the patient may qualify for future screening with alternating mammogram and breast MRI. Electronically signed and approved by: Zen Sanchez M.D. Radiologis
--- NOTE | 2023-11-28 09:35 | P.PN ---
Progress Note - Text Progress Note Date: 11/28/23 OUTPATIENT FOLLOW-UP NOTE TEST(S)/RESULTS: Right breast workup done on 11/27/2023 was probably benign. METHOD OF NOTIFICATION: Patient was notified by the radiology department at the time of the exam. PATIENT COMMENTS: DIAGNOSIS: Probably benign right breast workup. DISCUSSION: Following her workup, a 6-month diagnostic right mammogram was recommended. The order slip will be mailed to the patient for this. PLAN: As above.
== END | disposition home or self-care (01) ==
LOC: RADMAMWWP 08:58
PROVIDERS: ATTEND Obstetrics & Gynecology
DX: R92.331 Mammographic heterogeneous density, right breast (principal); Z78.0 Asymptomatic menopausal state
CPT/HCPCS: 77061; 77065